=== PATIENT | female | born 1950 | race African-American/Black ===

== ENCOUNTER 2021-06-24 07:30 | Emergency (ER) | payer OTHER ==
[~2021-06-24] VITALS: Ht 165.1 cm; Wt 84.4 kg
[~2021-06-24 07:30] MED LIST: ASA81 MG; HYZAAR 50-12.1 UDTAB; TOPROL XL50 M1
== END 2021-06-24 13:20 | disposition home or self-care (01) ==
LOC: ER 07:30
DX: R10.32 Left lower quadrant pain (principal); J06.9 Acute upper respiratory infection, unspecified

== ENCOUNTER 2022-01-05 18:52 | Emergency (ER) | payer OTHER ==
[~2022-01-05] VITALS: Ht 165.1 cm; Wt 84.4 kg
[2022-01-05] MEDS ORDERED: AVAPRO75 MG (19:30)
[2022-01-05] MEDS ORDERED: SIMVASTATIN5 MG (19:31)
== END 2022-01-05 23:18 | disposition home or self-care (01) ==
LOC: ER 18:52
DX: M70.51 Other bursitis of knee, right knee (principal); Y93.9 Activity, unspecified

== ENCOUNTER 2022-08-29 19:59 | Emergency (ER) | payer OTHER ==
[~2022-08-29] VITALS: Ht 167.6 cm; Wt 76.2 kg
[~2022-08-29 19:59] MED LIST changes: +AVAPRO75 MG; +SIMVASTATIN5 MG
== END 2022-08-29 22:19 | disposition home or self-care (01) ==
LOC: ER 19:59
DX: R05.9 Cough, unspecified (principal); Z20.822 Contact with and (suspected) exposure to COVID-19

== ENCOUNTER 2024-04-13 07:12 | Emergency (ER) | payer OTHER ==
[~2024-04-13] VITALS: Ht 152.4 cm; Wt 83.0 kg
[2024-04-13] MEDS ORDERED: COZAAR25 MG (07:39)
[2024-04-13] MEDS ORDERED: AROMASIN25 MG (07:40)
[2024-04-13] MEDS ORDERED: ECOTRIN81 MG (07:40)
[2024-04-13] MEDS ORDERED: CLONIDINE HCL 0.1 MG TABLET PO ONE ×2 (08:45→08:52)
== END 2024-04-13 11:30 | disposition home or self-care (01) ==
LOC: ER 07:15
DX: I10 Essential (primary) hypertension (principal)